=== PATIENT | male | born 1955 | race Caucasian/White ===

== ENCOUNTER → 2017-01-04 | Outpatient (CLI) | payer OTHER ==
[2016-06-07 16:50] VITALS: BP 161/72
[~2017-01-04] MED LIST: AMOX1TAB11 PO; ASPI81TA44 PO; DOXY100T PO; FENO145T AD; GABA-586 PO; GABA600T2 PO; GLIM4TAB2 PO; INSU100V8 SQ; LOSA50TA2 PO; METF500T9 PO; RAMI10CA PO
--- NOTE | 2017-01-04 15:47 | KCIC ---
PROCEDURE Right foot 3 views. HISTORY Right 5th metatarsal pain. FINDINGS No fractures are identified. Alignment is maintained. There is mild osteoarthritis at the 1st and 5th metatarsophalangeal joints. A BB projects of the lower leg laterally. There are small plantar and posterior calcaneal spurs. IMPRESSION - No fracture. Mild osteoarthritis as above. Electronically signed by: Shane Mota (Jan 04, 2017 15:46:14)
== END | disposition home or self-care (01) ==
LOC: KCIC 14:12
PROVIDERS: ATTEND Family Medicine
DX: M19.071 Primary osteoarthritis, right ankle and foot (principal); M77.31 Calcaneal spur, right foot
CPT/HCPCS: 73630

== ENCOUNTER → 2018-03-03 | Outpatient (CLI) | payer OTHER | END | disposition home or self-care (01) | LOC: KCIC 15:14 | DX: M47.896 Other spondylosis, lumbar region (principal) | CPT/HCPCS: 72110 ==

== ENCOUNTER → 2018-03-18 | Outpatient (CLI) | payer MEDICARE, OTHER | END | disposition home or self-care (01) | LOC: KCIC MRI 13:44 | DX: Z13.828 Encounter for screening for other musculoskeletal disorder (principal); Z01.00 Encounter for examination of eyes and vision without abnormal findings; M48.061 Spinal stenosis, lumbar region without neurogenic claudication; M79.5 Residual foreign body in soft tissue; M16.11 Unilateral primary osteoarthritis, right hip | CPT/HCPCS: 70030; 72148; 73552; 73590 ==

== ENCOUNTER 2019-04-02 04:03 | Emergency (ER) | payer MEDICARE ==
[~2019-04-02] VITALS: Ht 175.3 cm; Wt 101.2 kg
[~2019-04-02 04:03] MED LIST changes: -ASPI81TA44 PO; +ASPI81TA59 PO; -GABA-586 PO; +GABA300C18 PO; -GABA600T2 PO; +GABA600T7 PO; +LOSA-73 PO; -LOSA50TA2 PO; -RAMI10CA PO; +RAMI10CA53 PO
[2019-04-02 04:27] VITALS: BP 163/73
[2019-04-02 04:30] LABS: BASO # 0.1 x10^3/uL (0.0-0.2); BASO % 1 % (0-3); EOS # 0.3 x10^3/uL (0.0-0.7); EOS % 3 % (0-3); HEMOGLOBIN 13.3 g/dL (13.0-17.5); LYMPH # 3.2 x10^3/uL (1.0-4.8); LYMPH % 34 % (24-48); MEAN CORPUSCULAR HEMOGLOBIN 30 pg (25-35); MEAN CORPUSCULAR HGB CONC 35 g/dL (31-37); MEAN CORPUSCULAR VOLUME 84 fL (79-100); MONO # 0.8 x10^3/uL (0.0-1.1); MONO % 8 % (0-9); NEUT # 5.2 x10^3uL (1.8-7.7); NEUT % 54 % (31-73); PLATELET COUNT 276 x10^3/uL (140-400); RED BLOOD COUNT 4.53 x10^6/uL (4.30-5.70); RED CELL DISTRIBUTION WIDTH 13.4 % (11.5-14.5); WHITE BLOOD COUNT 9.6 x10^3/uL (4.0-11.0)
[2019-04-02 04:41] LABS: CREATININE 0.8 mg/dL (0.7-1.3); GFR 97.6; POTASSIUM 3.6 mmol/L (3.5-5.1)
--- NOTE | 2019-04-02 04:47 | PHYS DOC ---
Past Medical History Past Medical History: Diabetes-Type II Past Surgical History: No Surgical History Alcohol Use: None Drug Use: None Adult General Chief Complaint Chief Complaint: DYSPNEA/RESPIRATOY DISTRESS HPI HPI 63-year-old male with a history of type 2 diabetes who recently started Victoza presents after a coughing spell tonight. Patient states over the last couple weeks he is having some nighttime coughing spells where he feels very short of breath. He states he feels like after the coughing spell he aspirates. He states he does very well during the day. He denies any fever chills or sweats. He denies hemoptysis. He states these episodes started around the time he started his new diabetic medicine.[] Review of Systems Review of Systems Constitutional: Denies fever or chills [] Eyes: Denies change in visual acuity, redness, or eye pain [] HENT: Denies nasal congestion or sore throat [] Respiratory: Cough as described[] Cardiovascular: No additional information not addressed in HPI [] GI: Denies abdominal pain, nausea, vomiting, bloody stools or diarrhea [] : Denies dysuria or hematuria [] Musculoskeletal: Denies back pain or joint pain [] Integument: Denies rash or skin lesions [] Neurologic: Denies headache, focal weakness or sensory changes [] Endocrine: Denies polyuria or polydipsia [] All other systems were reviewed and found to be within normal limits, except as documented in this note. Current Medications Current Medications Current Medications Medications (Trade) Dose Ordered Sig/Vamsi Start Time Stop Time Status Last Admin Dose Admin Albuterol/ Ipratropium (Duoneb) 3 ml 1X ONCE 04/02/19 05:00 04/02/19 05:01 Allergies Allergies Allergies Coded Allergies Type Severity Reaction Last Updated Verified No Known Drug Allergies 06/03/16 No Physical Exam Physical Exam Constitutional: Well developed, well nourished, no acute distress, non-toxic appearance. [] HENT: Normocephalic, atraumatic, bilateral external ears normal, oropharynx moist, no oral exudates, nose normal. [] Eyes: PERRLA, EOMI, conjunctiva normal, no discharge. [] Neck: Normal range of motion, no tenderness, supple, no stridor. [] Cardiovascular:Heart rate regular rhythm, no murmur [] Lungs & Thorax: Bilateral breath sounds clear to auscultation [] Abdomen: Bowel sounds normal, soft, no tenderness, no masses, no pulsatile masses. [] Skin: Warm, dry, no erythema, no rash. [] Back: No tenderness, no CVA tenderness. [] Extremities: No tenderness, no cyanosis, no clubbing, ROM intact, no edema. [] Neurologic: Alert and oriented X 3, normal motor function, normal sensory function, no focal deficits noted. [] Psychologic: Anxious. [] Current Patient Data Vital Signs Vital Signs Date Time Temp Pulse Resp B/P (MAP) Pulse Ox O2 Delivery O2 Flow Rate FiO2 04/02/19 04:27 98.2 92 20 163/73 (103) 97 Room Air 98.2 Lab Values Laboratory Tests Test 04/02/19 04:23 White Blood Count 9.6 x10^3/uL (4.0-11.0) Red Blood Count 4.53 x10^6/uL (4.30-5.70) Hemoglobin 13.3 g/dL (13.0-17.5) Hematocrit 38.0 % (39.0-53.0) L Mean Corpuscular Volume 84 fL (79-100) Mean Corpuscular Hemoglobin 30 pg (25-35) Mean Corpuscular Hemoglobin Concent 35 g/dL (31-37) Red Cell Distribution Width 13.4 % (11.5-14.5) Platelet Count 276 x10^3/uL (140-400) Neutrophils (%) (Auto) 54 % (31-73) Lymphocytes (%) (Auto) 34 % (24-48) Monocytes (%) (Auto) 8 % (0-9) Eosinophils (%) (Auto) 3 % (0-3) Basophils (%) (Auto) 1 % (0-3) Neutrophils # (Auto) 5.2 x10^3uL (1.8-7.7) Lymphocytes # (Auto) 3.2 x10^3/uL (1.0-4.8) Monocytes # (Auto) 0.8 x10^3/uL (0.0-1.1) Eosinophils # (Auto) 0.3 x10^3/uL (0.0-0.7) Basophils # (Auto) 0.1 x10^3/uL (0.0-0.2) Sodium Level 138 mmol/L (136-145) Potassium Level 3.6 mmol/L (3.5-5.1) Chloride Level 102 mmol/L (98-107) Carbon Dioxide Level 26 mmol/L (21-32) Anion Gap 10 (6-14) Blood Urea Nitrogen 19 mg/dL (8-26) Creatinine 0.8 mg/dL (0.7-1.3) Estimated GFR (Cockcroft-Gault) 97.6 BUN/Creatinine Ratio 24 (6-20) H Glucose Level 214 mg/dL (70-99) H Calcium Level 9.0 mg/dL (8.5-10.1) Total Bilirubin 0.3 mg/dL (0.2-1.0) Aspartate Amino Transferase (AST) 15 U/L (15-37) Alanine Aminotransferase (ALT) 25 U/L (16-63) Alkaline Phosphatase 50 U/L (46-116) Troponin I Quantitative < 0.017 ng/mL (0.000-0.055) WT-Wxj-B-Type Natriuretic Peptide 11 pg/mL (0-124) Total Protein 6.9 g/dL (6.4-8.2) Albumin 3.5 g/dL (3.4-5.0) Albumin/Globulin Ratio 1.0 (1.0-1.7) Laboratory Tests 04/02/19 04:23 Laboratory Tests 04/02/19 04:23 EKG EKG [] Interpretation Time: EKG: Normal sinus rhythm rate of [address]-T changes Radiology/Procedures Radiology/Procedures [] Impressions: Chest x-ray: Negative exam as interpreted by me Course & Med Decision Making Course & Med Decision Making Pertinent Labs and Imaging studies reviewed. (See chart for details) [ED course: Evaluation reveals a 63-year-old male in no distress he's been having coughing fits at night. He attributes this to the new diabetic medicine. He is also on an DELORES inhibitor but he says he's been on that for many many months. I've informed patient that his laboratory studies look normal and his chest x-ray is clear. I've encouraged him to follow with his primary care physician at this time.] Dragon Disclaimer Dragon Disclaimer This electronic medical record was generated, in whole or in part, using a voice recognition dictation system. Departure Departure Impression: Primary Impression: Cough Disposition: 01 HOME, SELF-CARE Condition: STABLE Referrals: EJ PATHAK MD (PCP) Patient Instructions: Cough, Adult Additional Instructions: Follow with your primary care physician this week for recheck. Return to the emergency department with any new or concerning symptoms JOVITA ZARATE DO Apr 02, 2019 04:47
[2019-04-02 04:48] LABS: ALBUMIN 3.5 g/dL (3.4-5.0); TOTAL BILIRUBIN 0.3 mg/dL (0.2-1.0); TOTAL PROTEIN 6.9 g/dL (6.4-8.2)
[2019-04-02] MEDS ORDERED: IPRATRPIUM/ALBUTEROL 0.5/2.5MG 3 ML NEBU. NEB ONE (05:00)
--- NOTE | 2019-04-02 09:18 | RAD ---
AP chest x-ray HISTORY: Cough and shortness of breath. COMPARISON: Chest x-ray June 03, 2016. FINDINGS: Heart size normal. Mediastinal silhouette is normal. Lateral left upper lobe calcified granuloma overlapping the posterior sixth rib, stable. No pneumothorax, pulmonary opacities or pleural effusions. Bones are unremarkable. IMPRESSION: No acute process. Electronically signed by: Shaun Ramey MD (04/02/2019 9:15 AM) [facility]
--- NOTE | 2019-04-03 06:50 | EKG ---
[facility] [address] [place] [id number] Test Date: 2019-04-02 Test Time: 04:32:31 Pat Name: HARVINDER LESLIE Department: Room: Gender: Size Mixer: : 1955 Requested By: JOVITA ZARATE Order Number: [id number] Reading MD: Measurements Intervals [place] Rate: 93 P: 40 AL: 154 QRS: 24 QRSD: 94 T: 31 QT: 348 QTc: 435 Interpretive Statements SINUS RHYTHM NORMAL ECG RI6.01 No previous ECG available for comparison
== END 2019-04-02 05:07 | disposition home or self-care (01) ==
LOC: ER 04:03
DX: R05 Cough (principal); R06.02 Shortness of breath; E11.9 Type 2 diabetes mellitus without complications
CPT/HCPCS: 36415; 71045; 80053; 83880; 84484; 85025; 93005; 99285; J7620

== ENCOUNTER → 2021-11-28 | Outpatient (CLI) | payer MEDICARE ==
[~2021-11-28] MED LIST changes: -GLIM4TAB2 PO; +GLIM4TAB8 PO; +METF-658 PO; -METF500T9 PO
--- NOTE | 2021-11-28 13:50 | KCIC ---
Exam Date: 11/28/2021 10:30 AM MRI LEFT UPPER EXTREMITY JOINT WITHOUT CONTRAST Indication: Reason: NEURAPRAXIA OF LT MEDIAN NERVE WRIST / Spl. Instructions: / History: UNABLE TO M QUYNH A FIST,PAIN FROM MID FOREARM TO FINGERS,ARTHRITIS. TECHNIQUE: Multiplanar MR images of the wrist were obtained without intravenous contrast. COMPARISON: Radiographs from November 03, 2021 FINDINGS: Degenerative signal is seen in the triangular fibrocartilage without discrete tear, though evaluation is limited in the absence of intra-articular contrast. Scapholunate and lunotriquetral ligaments ar e within normal limits, allowing for the limitations of imaging in the absence of intra-articular con trast. The flexor tendons and carpal tunnel are within normal limits. Extensor tendons are within normal li mits. Scattered degenerative marrow signal is seen in the wrist. No acute fracture is seen. IMPRESSION: Degenerative changes noted. No acute fracture. Electronically signed by: Noah Perry MD (11/28/2021 1:48 PM) [id number]
== END ==
LOC: KCIC MRI 09:53
PROVIDERS: ATTEND Physician Assistant
DX: S54.12XA Injury of median nerve at forearm level, left arm, initial encounter (principal); M19.042 Primary osteoarthritis, left hand; X58.XXXA Exposure to other specified factors, initial encounter; Y93.89 Activity, other specified; Y92.89 Other specified places as the place of occurrence of the external cause; Y99.8 Other external cause status
CPT/HCPCS: 73221